=== PATIENT | male | born 1940 | race Caucasian/White ===

== ENCOUNTER → 2019-03-16 | Outpatient (CLI) | payer MEDICARE, OTHER ==
[~2019-03-16] MED LIST: ACTOS 30 MG TAB30 M2 PO; BYDUREON P2 MG/0.65 SUBQ; BYETTA PEN 11 PENIN2 SUBQ; ELIQUIS2.5 MG PO; FENOFIBRATE160 MG PO; LIPITOR 20 MG T20 M1 PO; LISINOPRIL20 MG PO; METOPROLOL SUC100 MG PO; NEURONTIN600 MG PO; STIOLTO RESPIMAT4 GM INH; TOPROL XL25 MG PO; VENTOLIN HFA 1818 GM INH; ZOCOR40 MG PO; ZYLOPRIM300 MG PO
--- NOTE | ~2019-03-16 | CON ---
[address] [address] CONSULTATION Name: JUVENALMICAELA ANNA Room: [facility]#: [id number] Admission: 03/16/19 Attend Phys: Bobo Harry MD Discharge: Date of : 36 Report #: [id number] THIS REPORT FOR: //name// CC: Bobo Wall DATE OF SERVICE: 03/16/2019 RADIATION ONCOLOGY CONSULTATION REFERRING PHYSICIANS: Include Dr. Reji Kauffman, also Dr. Kavon Wall, as well as Dr. Zarate is his tabular typist. PRIMARY SITE AND HISTOPATHOLOGY: The patient has radiographic findings consistent with a localized lung cancer, probably a non-small cell lung cancer. HISTORY OF PRESENT ILLNESS: The patient is an 78-year-old gentleman who was seen for dyspnea and pleural effusion and chest CT revealed a right lower lobe nodule that measured 2 cm x 1.6 cm. He had a thoracentesis of the left chest and cytology was negative for malignant cells. He underwent a PET/CT scan on 02/12/2019, which revealed 2.2 cm x 1.3 cm mass in the posterior lateral right lower thorax with an SUV of 5.81. The core inserter, Dr. Kauffman did not feel that he would probably be a good surgical candidate and there was concern about trying to attempt to biopsy in this patient with chronic obstructive pulmonary disease with severe impairment. His FEV1 was about 1.2 liters or 53% of predicted. Initially, they are looking at a CT-guided biopsy, but then decided against it. He presents to discuss possible treatment of this presumed non-small cell lung cancer. PAST MEDICAL HISTORY AND PAST SURGICAL HISTORY: Includes hearing loss, hypertension, heart disease, kidney disease. MEDICATIONS: Include albuterol, allopurinol, Eliquis, Lipitor, Bydureon pen, Triglide, gabapentin, lisinopril, Toprol, ipratropium bromide. ALLERGIES: The patient has no known drug allergies. FAMILY HISTORY: Mother had lung cancer. Sister had breast cancer. Father had metastatic cancer. SOCIAL HISTORY: The patient is retired from [employer]. He is . Ethanol, Does not drink alcohol containing drinks. Cigarettes, he smoked 1 pack per day for 52 years. He quit smoking in 1995. REVIEW OF SYSTEMS: GENERAL: The patient denied having any [place] [address] CONSULTATION Name: MICAELA SANFORD ANNA Room: [facility]#: [id number] Admission: 03/16/19 Attend Phys: Bobo Harry MD Discharge: Date of : 36 Report #: [id number] SKIN: The patient denied having color changes or itching. LYMPH NODES: He denied having enlarged or painful glands in the neck. ENDOCRINE: He denied having any hot or cold intolerance. HEMATOLOGY/IMMUNOLOGY: The patient denied having recent bleeding. MUSCULOSKELETAL: The patient denied having arthritis. HEAD AND NECK: The patient denied any headaches, migraines. RESPIRATORY: The patient smoked about 52 years. He quit smoking in 1995. He had coronary artery bypass graft in 1995. CARDIOVASCULAR: No palpitations. GASTROINTESTINAL: No nausea or vomiting. NEUROLOGIC: No focal weakness. PHYSICAL EXAMINATION: VITAL SIGNS: Height 5 feet 8 inches, weight 206 pounds, blood pressure 106/63, pulse 84, oxygen saturation 95%. LYMPH NODES: He had no palpable cervical or supraclavicular lymphadenopathy. GENERAL AND PSYCHIATRIC: The patient was alert, oriented, in no acute distress. EYES: Pupils are equal, round, react to light and accommodation. Extraocular movement was intact. HEAD, EARS, NOSE AND THROAT: Mouth had no visible lesions. HEART: Had a regular rate and rhythm without murmur. LUNGS: Clear to auscultation. In terms of the lungs, the patient has slightly decreased breath sounds bilaterally. ABDOMEN: Nontender. Spleen was not palpable. Liver was at the costal margin. EXTREMITIES: Had no clubbing, cyanosis or edema. NEUROLOGIC: Cranial nerves 2-12 are intact. Sensation was intact. He had 4/5 strength in his extremities. He uses a cane when he ambulates, he has used that for several years. LABORATORY DATA: From 01/29/2019, sodium 141, potassium 5.2, BUN 55, creatinine 1.6. White blood cell count 5.9, hemoglobin 12.9, platelets 317,000. RADIOLOGIC DATA: The patient had chest CT scan on 01/16/2019, which revealed at that time a moderate left pleural effusion with right lower lobe mass measuring 2 cm x 1.6 cm. He also had a PET/CT scan on 02/12/2019, which revealed a moderate left pleural effusion with no evidence of abnormal activity in the left pleural effusion. There was a 2.2 cm x 1.3 cm mass in the posterior lateral right lower thorax with an SUV of ____, which would be consistent with a pulmonary metastasis. ASSESSMENT AND PLAN: The patient was told that in a patient who can tolerate that biopsy and surgical resection, is the usual consideration in that type of setting. In this case, it is not clear if the patient will be able to tolerate a biopsy and/or surgical resection of this, so I also offered to him the option of stereotactic body radiation therapy for this lung lesion versus further observation. The efficacy of stereotactic body radiation therapy can be found [address] [address] CONSULTATION Name: JUVENALMICAELA ANNA Room: [facility].[place].#: [id number] Admission: 03/16/19 Attend Phys: Bobo Harry MD Discharge: Date of : 36 Report #: [id number] in the article that with title image based management of empiric lung stereotactic body radiotherapy without biopsy predictors from a 10-year single institutional experience and this is from the [facility] in [place], [place], one of the authors is Dr. Blackman. In that study, they had a 101 empiric lung stereotactic body radiation therapy cases that were treated. The local control at 3 years was 94% and the toxicity was there were 2 patients out of 100 who had grade 3 dyspnea. So the risks, benefits, logistics in that article they indicated that empiric treatment is a reasonable option considering that the incidence of lung biopsy complications such as pneumothorax and high-risk populations can be as high as 38%. So the risks, benefits, logistics of radiation therapy were discussed with the patient in detail and that was stereotactic body radiation therapy and the patient gave his witness, informed consent to proceed with stereotactic body radiation therapy without biopsy. The patient does understand, in the situation where we would have a patient where this is not a cancer, then he may have side effects from the treatment without benefit. Thank you very much for this consult. By: [id number] Harry MD /shree
== END ==
LOC: M.RTH 13:16
DX: C34.90 Malignant neoplasm of unspecified part of unspecified bronchus or lung (principal); J90 Pleural effusion, not elsewhere classified; F17.210 Nicotine dependence, cigarettes, uncomplicated